=== PATIENT | male | born 1960 | race Caucasian/White ===

== ENCOUNTER 2018-09-30 19:27 | Observation (INO) | payer OTHER ==
[~2018-09-30] VITALS: Ht 180.3 cm; Wt 86.4 kg
[2018-09-30] MEDS ORDERED: NITROGLYCERIN 2% 1 GM OINT PKT TD STA (19:31)
--- NOTE | 2018-09-30 19:34 | ERD ---
ER Documentation Chief Complaint Chief Complaint Chest pain HPI 58-year-old gentleman history of coronary disease and hypertension with a stent placed 2 years ago noncompliant with medication who presents with chest pain. His chest pain started just prior to arrival and is pressure-like and sharp along the left side of his chest consistent with chest pain in the past. Patient states that this occurred when having an argument. He denies any nausea or vomiting. He was given aspirin and nitro via EMS with mild improvement. Pat ient states that he feels very anxious. ROS All systems reviewed and are negative except as per history of present illness. Allergies Allergies: Coded Allergies: No Known Allergy (Unverified , 09/30/18) FmHx Family History: coronary disease; No diabetes Physical Exam Vitals Vital Signs Date Temp Pulse Resp B/P (MAP) Pulse Ox O2 O2 Flow FiO2 Time Delivery Rate 09/30/18 102 17 133/86 2 Nasal 20:31 (102) Cannula 09/30/18 98.0 103 17 146/95 2 Nasal 20:14 (112) Cannula 09/30/18 Nasal 2 19:38 Cannula 09/30/18 98.9 112 18 111/99 95 19:36 (103) Physical Exam General: Well developed, well nourished, no acute distress Head: Normocephalic, atraumatic. Eyes: Pupils equally reactive, EOM intact ENT: Moist mucous membranes Neck: Supple, no lymphadenopathy Respiratory: Lungs clear bilaterally, no distress Cardiovascular: RRR, no murmurs, rubs, or gallops Abdominal: Soft, non-tender, non-distended, no peritoneal signs : Deferred MSK: No edema, no unilateral swelling, 5/5 strength Neurologic: Alert and oriented, moving all extremities, normal speech, no focal weakness, no cerebellar signs Skin: No rash Psych: Anxious mood Result Diagram: 09/30/18193709/30/181937 Results 24 hrs Laboratory Tests Test 09/30/18 19:38 White Blood Count 7.9 10^3/ul Red Blood Count 5.15 10^6/ul Hemoglobin 16.3 g/dl Hematocrit 47.7 % Mean Corpuscular Volume 92.6 fl Mean Corpuscular Hemoglobin 31.7 pg Mean Corpuscular Hemoglobin Concent 34.2 g/dl Red Cell Distribution Width 13.8 % Platelet Count 221 10^3/UL Mean Platelet Volume 9.9 fl Immature Granulocytes % 0.400 % Neutrophils % 53.9 % Lymphocytes % 30.6 % Monocytes % 10.0 % Eosinophils % 4.1 % Basophils % 1.0 % Nucleated Red Blood Cells % 0.0 /100WBC Immature Granulocytes # 0.030 10^3/ul Neutrophils # 4.2 10^3/ul Lymphocytes # 2.4 10^3/ul Monocytes # 0.8 10^3/ul Eosinophils # 0.3 10^3/ul Basophils # 0.1 10^3/ul Nucleated Red Blood Cells # 0.0 10^3/ul Sodium Level 142 mmol/L Potassium Level 4.0 mmol/L Chloride Level 103 mmol/L Carbon Dioxide Level 20 mmol/L Anion Gap 19 Blood Urea Nitrogen 19 mg/dl Creatinine 1.28 mg/dl Est Glomerular Filtrat Rate mL/min 58 mL/min Glucose Level 92 mg/dl Calcium Level 9.4 mg/dl Troponin I 0.029 ng/ml Current Medications Medications Dose Sig/Sheree Start Time Status Last (Trade) Ordered Route PRN Stop Time Admin Dose Reason Admin 1 inch ONCE STAT 09/30/18 DC 09/30/18 Nitroglycerin TD 19:31 19:43 09/30/18 19:33 (Nitroglyceri n 2% Oint) Lorazepam 1 mg ONCE ONCE 09/30/18 DC 09/30/18 (Ativan) IV 20:00 19:43 09/30/18 20:01 Ondansetron 4 mg ER BRIDGE 09/30/18 HCl (Zofran PRN IV 21:00 Inj) NAUSEA/VOMITI 10/01/18 20:59 NG 650 mg ER BRIDGE 09/30/18 Acetaminophen PRN PO 21:00 (Tylenol .MILD PAIN 10/01/18 20:59 Tab) 1-3 OR TEMP Procedures/MDM EKG, MONITORS, & DIAGNOSTIC IMAGING: EKG: I reviewed and interpreted a 12-lead EKG. Rhythm: Sinus tachycardia ST Changes: Subtle ST segment elevation in aVR but no reciprocal changes, no other ST segment elevation T waves: No contiguous T wave inversions Impression: Abnormal EKG Repeat EKG: EKG: I reviewed and interpreted a 12-lead EKG. Rhythm: Normal sinus rhythm ST Changes: Subtle ST segment elevation in aVR but no reciprocal changes, no other ST segment elevations T waves: No contiguous T wave inversions Impression: Abnormal EKG Chest x-ray: I reviewed and interpreted a 1 view of the chest Mediastinum: No enlargement Cardiac silhouette: No cardiomegaly Airspace: Clear lung michael bilaterally without evidence of pneumothorax Bones: No evidence of fracture PROCEDURES: None LAB INTERPRETATION: Indeterminate troponin MEDICAL DECISION MAKING: The patient's history, physical exam and clinical presentation is concerning for possible cardiogenic etiology and acute coronary syndrome. There is a strong anxiety component but the patient has multiple risk factors including noncompliance with medication regimen and stent. Cannot rule out ACS in the emergency room setting. Admission recommended to the patient. Based on the patient's clinical exam and history and risk factors, I have a much lower clinical concern for pulmonary embolism, acute aortic dissection, pneumothorax, pneumonia, cardiac tamponade HEART Score: 4 MACE Rate: 12-16.6% Shared Decision Making: We had a conversation regarding risk stratification, MACE rate, and the risks, benefits, alternatives of disposition planning options. Disposition planning: Admit as above ER COURSE: * Aspirin provided prior to arrival. Nitropaste applied. Anxiolysis provided. * The patient's initial EKG showed abnormal aVR lead. However, the patient had no active chest pain. I do not believe the EKG was consistent with ST elevation myocardial infarction. However given his risk profile inpatient hospitalization for serial enzymes is appropriate. * Anxiolysis improved. No current chest pain. CONSULTATION: None DISPOSITION PLAN: Telemetry admission for management of chest pain to rule out acute coronary syndrome, serial enzymes, risk stratification and consideration of provocative testing CONSULTATION: Accepting care team and consultations: I discussed the current laboratory data, diagnostic imaging and emergency care provided. Admitting team: Dr. Keenan Admitting team indication: Insurance directed Departure Diagnosis: Primary Impression: Chest pain Chest pain type: unspecified Qualified Codes: R07.9 - Chest pain, unspecified Additional Impression: Anxiety reaction Condition: Stable BARBIE RAMÍREZ MD Sep 30, 2018 19:34
[2018-09-30 19:36] VITALS: Ht 180.3 cm; Wt 86.4 kg
[2018-09-30] MEDS ORDERED: LORAZEPAM 2 MG INJ IV ONE (20:00)
[2018-09-30] MEDS ORDERED: ACETAMINOPHEN 325 MG TAB PO PRN (21:00)
[2018-09-30] MEDS ORDERED: ONDANSETRON 4 MG INJ IV PRN (21:00)
[2018-10-01] MEDS ORDERED: ALBUTEROL/IPRATROPIUM (NEB) 3 ML AMP HHN PRN (03:30)
[2018-10-01] MEDS ORDERED: ACETAMINOPHEN 325 MG TAB PO PRN (03:30)
[2018-10-01] MEDS ORDERED: ONDANSETRON 4 MG INJ IV PRN (03:30)
[2018-10-01] MEDS ORDERED: NACL 0.9% 3 ML SYG IV SCH (03:30)
[2018-10-01] MEDS ORDERED: NITROGLYCERIN (SL) 0.4 MG TAB SL PRN (03:30)
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
[2018-10-01] MEDS: HEPARIN 5,000 UNIT/1 ML VIAL SC SCH ×2 (09:51→21:26)
[2018-10-01] MEDS: ASPIRIN 81 MG TAB PO SCH (09:51)
[2018-10-01 12:47] VITALS: BP 165/106; PULSE 90; RESP 20
--- NOTE | 2018-10-01 13:25 | PN ---
Date/Time of Note Date/Time of Note DATE: 10/01/18 TIME: 13:24 Assessment/Plan VTE Prophylaxis Pharmacological prophylaxis: LMWH Lines/Catheters IV Catheter Type (from Nrsg): Peripheral IV Assessment/Plan Hospital Course Assessment and plan 1. Chest pain rule out ACS. 2. Tobacco abuse status post counseling offered patch 3. Medication nonadherence. No PCP 4. Chronic COPD? 5. Chronic coronary disease/GA/PCI? 6. Subjective: Events noted Objective: Vital signs stable Physical exam No pallor JVD adenopathy Regular no murmur gallop Clear nontender no rash Benign No edema Result Diagram: 10/01/18 0742 10/01/18 0742 Results 24hrs Laboratory Tests Test 09/30/18 19:38 10/01/18 02:49 10/01/18 07:42 10/01/18 11:42 White Blood Count 7.9 4.4 #L Red Blood Count 5.15 5.02 Hemoglobin 16.3 15.8 Hematocrit 47.7 47.1 Mean Corpuscular 92.6 93.8 Volume Mean Corpuscular 31.7 31.5 Hemoglobin Mean Corpuscular 34.2 33.5 Hemoglobin Concent Red Cell 13.8 14.0 Distribution Width Platelet Count 221 164 # Mean Platelet Volume 9.9 9.7 Immature 0.400 0.500 H Granulocytes % Neutrophils % 53.9 48.6 Lymphocytes % 30.6 30.2 Monocytes % 10.0 12.8 H Eosinophils % 4.1 6.8 Basophils % 1.0 1.1 Nucleated Red Blood 0.0 0.0 Cells % Immature 0.030 0.020 Granulocytes # Neutrophils # 4.2 2.2 Lymphocytes # 2.4 1.3 Monocytes # 0.8 0.6 Eosinophils # 0.3 0.3 Basophils # 0.1 0.1 Nucleated Red Blood 0.0 0.0 Cells # Sodium Level 142 142 Potassium Level 4.0 4.1 Chloride Level 103 104 Carbon Dioxide Level 20 L 27 Anion Gap 19 H 11 # Blood Urea Nitrogen 19 14 Creatinine 1.28 H 0.99 Est Glomerular 58 L > 60 Filtrat Rate mL/min Glucose Level 92 105 Calcium Level 9.4 8.9 Troponin I 0.029 0.016 0.034 Creatine Kinase 154 143 Creatine Kinase 0.9 1.0 Index Creatinine Kinase MB 1.44 1.50 (Mass) Hemoglobin A1c 5.4 Magnesium Level 2.2 Total Bilirubin 0.8 Direct Bilirubin 0.00 Indirect Bilirubin 0.8 Aspartate Amino 46 Transf (AST/SGOT) Alanine 33 Aminotransferase (AL T/SGPT) Alkaline Phosphatase 83 Total Protein 7.9 Albumin 4.2 Globulin 3.70 H Albumin/Globulin 1.13 Ratio Triglycerides Level 145 Cholesterol Level 230 H LDL Cholesterol, 130 Calculated HDL Cholesterol 71 Cholesterol/HDL 3.2 Ratio Thyroid Stimulating 1.350 Hormone (TSH) Lab Scanned Report LAB Exam/Review of Systems Exam Vitals Vital Signs Date Temp Pulse Resp B/P (MAP) Pulse Ox O2 O2 Flow FiO2 Time Delivery Rate 10/01/18 98.7 90 20 165/106 94 12:47 (125) 10/01/18 Nasal 12:30 Cannula 10/01/18 21 11:37 10/01/18 5.0 09:30 Results Results 24hrs Laboratory Tests Test 09/30/18 19:38 10/01/18 02:49 10/01/18 07:42 10/01/18 11:42 White Blood Count 7.9 4.4 #L Red Blood Count 5.15 5.02 Hemoglobin 16.3 15.8 Hematocrit 47.7 47.1 Mean Corpuscular 92.6 93.8 Volume Mean Corpuscular 31.7 31.5 Hemoglobin Mean Corpuscular 34.2 33.5 Hemoglobin Concent Red Cell 13.8 14.0 Distribution Width Platelet Count 221 164 # Mean Platelet Volume 9.9 9.7 Immature 0.400 0.500 H Granulocytes % Neutrophils % 53.9 48.6 Lymphocytes % 30.6 30.2 Monocytes % 10.0 12.8 H Eosinophils % 4.1 6.8 Basophils % 1.0 1.1 Nucleated Red Blood 0.0 0.0 Cells % Immature 0.030 0.020 Granulocytes # Neutrophils # 4.2 2.2 Lymphocytes # 2.4 1.3 Monocytes # 0.8 0.6 Eosinophils # 0.3 0.3 Basophils # 0.1 0.1 Nucleated Red Blood 0.0 0.0 Cells # Sodium Level 142 142 Potassium Level 4.0 4.1 Chloride Level 103 104 Carbon Dioxide Level 20 L 27 Anion Gap 19 H 11 # Blood Urea Nitrogen 19 14 Creatinine 1.28 H 0.99 Est Glomerular 58 L > 60 Filtrat Rate mL/min Glucose Level 92 105 Calcium Level 9.4 8.9 Troponin I 0.029 0.016 0.034 Creatine Kinase 154 143 Creatine Kinase 0.9 1.0 Index Creatinine Kinase MB 1.44 1.50 (Mass) Hemoglobin A1c 5.4 Magnesium Level 2.2 Total Bilirubin 0.8 Direct Bilirubin 0.00 Indirect Bilirubin 0.8 Aspartate Amino 46 Transf (AST/SGOT) Alanine 33 Aminotransferase (AL T/SGPT) Alkaline Phosphatase 83 Total Protein 7.9 Albumin 4.2 Globulin 3.70 H Albumin/Globulin 1.13 Ratio Triglycerides Level 145 Cholesterol Level 230 H LDL Cholesterol, 130 Calculated HDL Cholesterol 71 Cholesterol/HDL 3.2 Ratio Thyroid Stimulating 1.350 Hormone (TSH) Lab Scanned Report LAB Medications Medication Current Medications Ondansetron HCl (Zofran Inj) 4 mg ER BRIDGE PRN IV NAUSEA/VOMITING; Start 09/30/18 at 21:00; Stop 10/01/18 at 20:59 Acetaminophen (Tylenol Tab) 650 mg ER BRIDGE PRN PO .MILD PAIN 1-3 OR TEMP; Start 09/30/18 at 21:00; Stop 10/01/18 at 20:59 IV Flush (NS 3 ml) 3 ml PER PROTOCOL IV ; Start 10/01/18 at 03:30 Ondansetron HCl (Zofran Inj) 4 mg Q6H PRN IV NAUSEA/VOMITING; Start 10/01/18 at 03:30 Aspirin (Aspirin) 81 mg DAILY PO Last administered on 10/01/18at 09:51; Admin Dose 81 MG; Start 10/01/18 at 09:00 Nitroglycerin (Nitroglycerin (Sl Tab) 0.4 Mg) 1 tab Q5M PRN SL .CHEST PAIN; Start 10/01/18 at 03:30 Acetaminophen (Tylenol Tab) 650 mg Q6H PRN PO .PAIN 1-3 OR TEMP; Start 10/01/18 at 03:30 Heparin Sodium (Porcine) (Heparin (5000 Units/1ml)) 5,000 unit Q12 SC Last administered on 10/01/18at 09:51; Admin Dose 5,000 UNIT; Start 10/01/18 at 09:00 Albuterol/ Ipratropium (Duoneb) 3 ml Q2H RESP THERAPY PRN HHN SHORTNESS OF BREATH Last administered on 10/01/18at 11:36; Admin Dose 3 ML; Start 10/01/18 at 03:30 LADAN DELANEY MD Oct 01, 2018 13:25
[2018-10-01] MEDS ORDERED: GUAIFENESIN/DM 5ML CUP PO PRN (13:30)
[2018-10-01 15:07] VITALS: BP 166/91; PULSE 94; RESP 21
[2018-10-01 16:01] VITALS: PULSE 94
[2018-10-01 20:20] VITALS: PULSE 96
[2018-10-01 21:00] VITALS: BP 178/111; PULSE 89; RESP 18
[2018-10-01] MEDS ORDERED: ATORVASTATIN 40 MG TAB PO SCH (21:00)
[2018-10-01] MEDS ORDERED: ZOLPIDEM 5 MG TAB PO ONE (22:30)
[2018-10-02] VITALS (8 sets, daily range): BP systolic 155–170; BP diastolic 96–105; PULSE 76–94; RESP 17–18
[2018-10-02] MEDS ORDERED: AMLODIPINE 10 MG TAB PO ONE (05:00)
[2018-10-02] MEDS: ASPIRIN 81 MG TAB PO SCH (08:22)
[2018-10-02] MEDS: HEPARIN 5,000 UNIT/1 ML VIAL SC SCH (08:28)
[2018-10-02] MEDS ORDERED: AMLODIPINE 10 MG TAB PO SCH (08:32)
[2018-10-02] MEDS ORDERED: CLOPIDOGREL 75 MG TAB PO SCH (09:00)
--- NOTE | 2018-10-02 11:14 | PDOCDIS ---
Discharge Instructions CONDITION [id number] Patient Condition: [id number] Stable HOME CARE INSTRUCTIONS: [id number] Diet Instructions: [id number] Low Fat /Cholesterol (low salt) ACTIVITY: [id number] Activity Restrictions: [id number] Slowly Increase Activity Do not Drive FOLLOW UP/APPOINTMENTS Follow-up Plan appt primary 1wk. in the meantime, obtain previous list of medicines from pharmacy or previous primary & may need to visit primary or urgent care for refill. LADAN DELANEY MD Oct 02, 2018 11:14
[2018-10-02] MEDS ORDERED: LOSA50TA14 PO (11:17)
[2018-10-02] MEDS ORDERED: GUAI120S26 PO (11:17)
[2018-10-02] MEDS ORDERED: ATOR40TA68 PO (11:17)
[2018-10-02] MEDS ORDERED: ALBU90AE INHALATION (11:17)
[2018-10-02] MEDS ORDERED: ASPI-831 PO (11:17)
[2018-10-02] MEDS ORDERED: AMLO-147 PO (11:17)
[2018-10-02] MEDS ORDERED: BUSP5TAB2 PO (11:17)
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
[2018-10-02] MEDS ORDERED: ZOLPIDEM 5 MG TAB PO ONE (21:00)
[2018-10-03] MEDS ORDERED: AMLODIPINE 10 MG TAB PO SCH (09:00)
== END 2018-10-02 13:10 | disposition home or self-care (01) ==
LOC: E/R 19:27 → TEL 20:32
PROVIDERS: ADMIT Internal Medicine; ATTEND Internal Medicine
DX: R07.9 Chest pain, unspecified (principal); F17.200 Nicotine dependence, unspecified, uncomplicated; I10 Essential (primary) hypertension; E78.5 Hyperlipidemia, unspecified; Z79.82 Long term (current) use of aspirin
CPT/HCPCS: 36415; 71045; 80048; 80053; 80061; 82550; 82553; 83036; 83690; 83735; 84100; 84443; 84484; 85025; 85610; 87400; 93005; 94664; 96374; J1644; J2060; Z7500; Z7502; Z7610; G0378

== ENCOUNTER 2018-11-07 01:02 | Emergency (ER) | payer OTHER ==
[~2018-11-07] VITALS: Wt 90.0 kg
[~2018-11-07 01:02] MED LIST: ALBU90AE INHALATION; AMLO-147 PO; ASPI-831 PO; ATOR40TA68 PO; BUSP5TAB2 PO; GUAI120S25 PO; LOSA50TA14 PO
[2018-11-07] MEDS ORDERED: LIDOCAINE 2%/EPI MPF (SDV) 20 ML VIAL INJ STA (01:14)
[2018-11-07] MEDS ORDERED: LIDOCAINE 2%/EPI (MDV) 20ML INJ INJ STA (01:22)
[2018-11-07] MEDS ORDERED: SERT-165 PO (02:42)
[2018-11-07] MEDS ORDERED: IBUP-1542 PO (03:32)
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
[2018-11-07] MEDS ORDERED: IBUPROFEN 800 MG TAB PO ONE (05:00)
[2018-11-07 05:30] VITALS: BP 136/99; PULSE 98; RESP 24
== END 2018-11-07 05:37 | disposition home or self-care (01) ==
LOC: E/R 01:02
DX: S02.2XXA Fracture of nasal bones, initial encounter for closed fracture (principal); I10 Essential (primary) hypertension; J44.9 Chronic obstructive pulmonary disease, unspecified; I25.10 Atherosclerotic heart disease of native coronary artery without angina pectoris; F17.210 Nicotine dependence, cigarettes, uncomplicated; S06.0X0A Concussion without loss of consciousness, initial encounter; S01.81XA Laceration without foreign body of other part of head, initial encounter; Y09 Assault by unspecified means; Z79.82 Long term (current) use of aspirin
CPT/HCPCS: 12013; 70450; 71045; 73550; 93005; Z7502; Z7610